=== PATIENT | male | born 1995 | race African-American/Black ===

== ENCOUNTER 2021-03-15 12:25 | Emergency (ER) | payer MEDICAID ==
[~2021-03-15] VITALS: Ht 167.6 cm; Wt 68.1 kg
[2021-03-15 12:55] VITALS: BP 178/117
[2021-03-15 13:16] LABS: BASOPHILS % (AUTO) 0.3 % (0.0-2.0); EOSINOPHILS % (AUTO) 0.5 % (1.0-6.0); HEMATOCRIT 47.5 % (41-53); HEMOGLOBIN 15.4 g/dL (13.5-17.5); LYMPHOCYTES # (AUTO) 0.7 K/uL (1.0-4.8); MEAN CORPUSCULAR HEMOGLOBIN 28.6 pg (26.0-34.0); MEAN CORPUSCULAR HGB CONC 32.4 G/dL (31.0-37.0); MEAN CORPUSCULAR VOLUME 88 fL (80-100); MONOCYTES # (AUTO) 0.7 K/uL (0.1-1.0); MONOCYTES % (AUTO) 8.6 % (2.0-9.0); NEUTROPHILS # (AUTO) 6.8 K/uL (1.8-7.7); NEUTROPHILS % (AUTO) 82.6 % (40.0-70.0); PLATELET COUNT (AUTO) 212 K/uL (150-450); RED BLOOD CELL COUNT(AUTO) 5.37 MIL/uL (4.50-5.90); RED CELL DISTRIBUTION WIDTH 14.3 % (11.5-14.5)
[2021-03-15 13:56] LABS: ANION GAP 13 mmol/L (8-16); CALCIUM, TOTAL 9.5 mg/dL (8.8-10.5); CARBON DIOXIDE 24 mmol/L (22-29); CHLORIDE 100 mmol/L (98-107); CREATININE 1.32 mg/dL (0.60-1.30); GLOMERULAR FILTR. RATE CALC > 60 mL/min (>60); GLUCOSE,RANDOM 101 mg/dL (70-110); POTASSIUM 4.5 mmol/L (3.5-5.1); SODIUM SERUM 137 mmol/L (136-145); UREA NITROGEN, BLOOD 7 mg/dL (7-18)
[2021-03-15 14:02] LABS: ALANINE AMINOTRANSFERASE 27 U/L (12-78); ALBUMIN 4.3 g/dL (3.4-5.0); ALKALINE PHOSPHATASE 73 U/L (46-116); ASPARTATE AMINOTRANSFERASE 36 U/L (15-37); BILIRUBIN,TOTAL 0.8 mg/dL (0.1-1.0); TOTAL PROTEIN, SERUM 7.9 g/dL (6.4-8.2)
== END 2021-03-15 14:35 | disposition left against medical advice (07) ==
LOC: EMS 12:28
DX: G40.909 Epilepsy, unspecified, not intractable, without status epilepticus (principal); M25.512 Pain in left shoulder
CPT/HCPCS: 36415; 80053; 80201; 85025; 93041; 99284; G0480

== ENCOUNTER 2025-03-14 20:06 | Emergency (ER) | payer OTHER ==
[~2025-03-14] VITALS: Ht 160 cm; Wt 62.7 kg
[2025-03-14 20:45] VITALS: TEMP 98.7
[2025-03-14 21:48] LABS: PLATELET COUNT (AUTO) 216 K/uL (150-450); RED BLOOD CELL COUNT(AUTO) 5.14 MIL/uL (4.50-5.90); RED CELL DISTRIBUTION WIDTH 16.1 % (11.5-14.5); WHITE BLOOD COUNT (AUTO) 6.2 K/uL (4.5-11.0)
[2025-03-14 21:55] LABS: CALCIUM, TOTAL 8.6 mg/dL (8.8-10.5); CREATININE 1.20 mg/dL (0.60-1.30); GLOMERULAR FILTR. RATE CALC > 60 mL/min (>60); GLUCOSE,RANDOM 123 mg/dL (70-110); SODIUM SERUM 137 mmol/L (136-145); UREA NITROGEN, BLOOD 12 mg/dL (7-18)
[2025-03-14 22:00] VITALS: BP 168/102; PULSE 88; RESP 16; O2SAT 90
[2025-03-14] MEDS: LevETIRAcetam 1,000 MG in DEXTROSE 5%-WATER 100 ML IV ONE (22:01)
== END 2025-03-15 01:03 | disposition home or self-care (01) ==
LOC: EMS 20:06
DX: R56.9 Unspecified convulsions (principal); J69.0 Pneumonitis due to inhalation of food and vomit
CPT/HCPCS: 99284; 96374; 71045; 80048; 85025; 36415; J0712; G0480; J7060

== ENCOUNTER 2025-03-18 11:52 | Emergency (ER) | payer OTHER ==
[~2025-03-18] VITALS: Ht 167.6 cm; Wt 65.9 kg
[2025-03-18 12:02] VITALS: TEMP 98.2
[2025-03-18] MEDS ORDERED: AMLO-257 PO (13:44)
[2025-03-18] MEDS ORDERED: LEVE-71 PO (13:44)
[2025-03-18 14:15] VITALS: BP 167/101; PULSE 60; RESP 18; O2SAT 99
== END 2025-03-18 14:31 | disposition home or self-care (01) ==
LOC: EMS 11:54
DX: I10 Essential (primary) hypertension (principal); G40.909 Epilepsy, unspecified, not intractable, without status epilepticus; Z76.0 Encounter for issue of repeat prescription
CPT/HCPCS: 99282; Z7502

== ENCOUNTER 2025-03-26 19:05 | Emergency (ER) | payer OTHER ==
[~2025-03-26] VITALS: Ht 170.2 cm; Wt 68.2 kg
[~2025-03-26 19:05] MED LIST: AMLO-257 PO; LEVE-71 PO
[2025-03-26 19:10] VITALS: BP 155/104; PULSE 84; RESP 18; TEMP 97.9; O2SAT 99
[2025-03-26] MEDS ORDERED: LEVE-71 PO (19:29)
[2025-03-26] MEDS ORDERED: AMLO-257 PO (19:29)
== END 2025-03-26 19:51 | disposition home or self-care (01) ==
LOC: EMS 19:05
DX: R56.9 Unspecified convulsions (principal); Z76.0 Encounter for issue of repeat prescription; Z79.899 Other long term (current) drug therapy
CPT/HCPCS: 99283

== ENCOUNTER 2025-04-28 14:40 | Emergency (ER) | payer OTHER ==
[~2025-04-28] VITALS: Ht 167.6 cm; Wt 70.5 kg
[2025-04-28 14:44] VITALS: TEMP 98
[2025-04-28] MEDS ORDERED: AMLO-257 PO (15:19)
[2025-04-28] MEDS ORDERED: LEVE-71 PO (15:19)
[2025-04-28 16:05] VITALS: BP 157/99; PULSE 86; RESP 16; O2SAT 100
== END 2025-04-28 16:05 | disposition home or self-care (01) ==
LOC: EMS 14:41
DX: G40.909 Epilepsy, unspecified, not intractable, without status epilepticus (principal); I10 Essential (primary) hypertension; Z79.899 Other long term (current) drug therapy; Z76.0 Encounter for issue of repeat prescription
CPT/HCPCS: 99283